=== PATIENT | female | born 1990 | race Caucasian/White ===

== ENCOUNTER 2017-11-25 11:09 | Emergency (ER) | payer OTHER ==
[2017-11-25 12:20] LABS: KETONE, URINE AUTO RFX NEGATIVE (NEGATIVE); LEUKOCYTE ESTERASE UR AUTO RFX NEGATIVE (NEGATIVE); NITRITE, URINE AUTO RFX NEGATIVE (NEGATIVE); RBC, URINE AUTO RFX 30 /HPF (0-3); SPECIFIC GRAVITY UR AUTO RFX 1.014 (1.002-1.035); SQUAM EPITHELIAL CELL UR AURFX 0 /HPF (0-6); WBC, URINE AUTO RFX 1 /HPF (0-3)
[2017-11-25] MEDS: ACETAMINOPHEN 325 MG TAB PO (14:27)
[2017-11-25 14:49] LABS: BASO # 0.1 10^3/uL (0.0-0.2); BASO % 0.6 % (0.0-1.0); EOS # 0.1 10^3/uL (0.0-0.50); EOS % 1.4 % (0.0-3.0); HEMATOCRIT 37.3 % (36.0-47.0); HEMOGLOBIN 12.4 g/dl (12.0-15.5); IMMATURE GRANULOCYTE % 0.2 % (0-3.0); LYMPH # 2.2 10^3/uL (1.5-6.5); LYMPH % 25.1 % (24.0-44.0); MEAN CORPUSCULAR HEMOGLOBIN 29.5 pg (27.0-33.0); MEAN CORPUSCULAR HGB CONC 33.2 g/dl (32.0-36.5); MEAN CORPUSCULAR VOLUME 88.8 fl (80.0-96.0); MONO # 0.6 10^3/uL (0.0-0.8); NEUTROPHILS # 5.7 10^3/uL (1.8-7.7); NEUTROPHILS % 65.7 % (36.0-66.0); PLATELET COUNT, AUTOMATED 297 10^3/uL (150-450); WHITE BLOOD COUNT 8.7 10^3/uL (4.0-10.0)
[2017-11-25 15:20] LABS: ANION GAP 8 MEQ/L (8-16); BLOOD UREA NITROGEN 5 MG/DL (7-18); CALCIUM LEVEL 8.8 MG/DL (8.5-10.1); CARBON DIOXIDE LEVEL 25 MEQ/L (21-32); CHLORIDE LEVEL 106 MEQ/L (98-107); CREATININE FOR GFR 0.48 MG/DL (0.55-1.30); GLOMERULAR FILTRATION RATE > 60.0 (>60); GLUCOSE, FASTING 83 MG/DL (70-100); HCG, SERUM QUANTITATIVE 3 MIU/ML; POTASSIUM SERUM 4.1 MEQ/L (3.5-5.1); SODIUM LEVEL 139 MEQ/L (136-145)
== END 2017-11-25 16:25 | disposition home or self-care (01) ==
LOC: M ED 11:09
DX: O03.9 Complete or unspecified spontaneous abortion without complication (principal); F17.210 Nicotine dependence, cigarettes, uncomplicated
CPT/HCPCS: 76856

== ENCOUNTER 2018-03-28 09:36 | Emergency (ER) | payer OTHER ==
[2018-03-28] MEDS: ONDANSETRON 4 MG ORAL DISINTEGRATING TAB (Q0162 PER 1MG) PO (11:05)
== END 2018-03-28 11:35 | disposition home or self-care (01) ==
LOC: M ED 09:36
DX: R11.2 Nausea with vomiting, unspecified (principal); R19.7 Diarrhea, unspecified; F17.210 Nicotine dependence, cigarettes, uncomplicated
CPT/HCPCS: Q0162

== ENCOUNTER 2018-09-11 15:41 | Emergency (ER) | payer OTHER ==
[~2018-09-11] VITALS: Ht 167.6 cm; Wt 68.2 kg
[~2018-09-11 15:41] MED LIST: BENT10CA PO; REGL10TA6 PO; ZOFR4TAB14 PO
[2018-09-11] MEDS ORDERED: PRENTAB55 PO (15:45)
[2018-09-11 16:15] LABS: BASO % 0.3 % (0.0-1.0); EOS # 0.3 10^3/uL (0.0-0.50); EOS % 2.5 % (0.0-3.0); HEMATOCRIT 33.6 % (36.0-47.0); HEMOGLOBIN 11.2 g/dl (12.0-15.5); LYMPH # 2.6 10^3/uL (1.5-6.5); LYMPH % 25.2 % (24.0-44.0); MEAN CORPUSCULAR HEMOGLOBIN 29.6 pg (27.0-33.0); MEAN CORPUSCULAR HGB CONC 33.3 g/dl (32.0-36.5); MEAN CORPUSCULAR VOLUME 88.7 fl (80.0-96.0); MONO # 0.9 10^3/uL (0.0-0.8); MONO % 8.2 % (0.0-5.0); NEUTROPHILS # 6.6 10^3/uL (1.8-7.7); NEUTROPHILS % 63.5 % (36.0-66.0); RED BLOOD COUNT 3.79 10^6/uL (4.00-5.40); WHITE BLOOD COUNT 10.5 10^3/uL (4.0-10.0)
[2018-09-11] MEDS ORDERED: NS 500 ML IV ONE (16:15)
--- NOTE | 2018-09-11 17:13 | REP ---
Obstetric sonography: Multiple gestation. First trimester study. History: Vaginal spotting. Findings: A diamniotic dichorionic twin gestation is seen. There is concordant growth. No subchorionic hemorrhage is seen. There is a 2.2 cm cyst in the maternal left ovary consistent with corpus luteum. A trace of cul-de-sac fluid is seen. [place]-rump length of fetus A is 6 mm corresponding with a 6 week 3 day gestational age estimate. heart rate is recorded at 122 beats per minute. The crown-rump length of fetus B is 7 mm corresponding with 6 weeks 4 day estimate. Its heart rate is recorded at 124 beats per minute. Impression: Viable diamniotic dichorionic twin gestation at 6 weeks 4 days from crown-rump length. PADMINI by sonography May 03, 2019. No complication is identified. Electronically Signed by Joseph Calzada MD 09/11/2018 08:04 P
[2018-09-11 17:49] LABS: BLOOD UREA NITROGEN 9 MG/DL (7-18); CARBON DIOXIDE LEVEL 25 MEQ/L (21-32); CHLORIDE LEVEL 104 MEQ/L (98-107); CREATININE FOR GFR 0.47 MG/DL (0.55-1.30); GLOMERULAR FILTRATION RATE > 60.0 (>60); GLUCOSE, FASTING 79 MG/DL (70-100); HCG, SERUM QUANTITATIVE 74236 MIU/ML; POTASSIUM SERUM 3.7 MEQ/L (3.5-5.1); SODIUM LEVEL 138 MEQ/L (136-145)
[2018-09-11 19:20] VITALS: BP 106/68
== END 2018-09-11 19:21 | disposition home or self-care (01) ==
LOC: M ED 15:41
DX: O20.9 Hemorrhage in early pregnancy, unspecified (principal); O30.041 Twin pregnancy, dichorionic/diamniotic, first trimester; O99.331 Smoking (tobacco) complicating pregnancy, first trimester; F17.210 Nicotine dependence, cigarettes, uncomplicated; Z3A.01 Less than 8 weeks gestation of pregnancy

== ENCOUNTER → 2018-09-30 | Outpatient (CLI) | payer OTHER ==
[~2018-09-30] MED LIST changes: +PRENTAB55 PO
--- NOTE | 2018-09-30 11:20 | REP ---
Emergency first trimester obstetric sonography: Multiple gestation. History: 9 weeks gestation with twins. Absence of cardiac activity. Findings: Scanning through the gravid uterus and urine filled bladder confirms the presence of a diamniotic dichorionic twin gestation. No subchorionic hemorrhage is appreciated. No extrauterine abnormalities observed. Unfortunately, no activity or cardiac activity could be documented in twin A. The crown-rump length of the embryonic pole for twin A is 23.6 mm. This corresponds with a gestational age estimate of 9 weeks 1 day by crown-rump length. Twin B is living with heart rate recorded at 183 beats per minute. The embryonic pole of twin B is 24.8 mm which corresponds with a 9 week 2 day gestational age estimate. Impression: Intrauterine demise twin A. Viable twin B at 9 weeks 1 day based on prior sonography. PADMINI May 04, 2019. heart rate for twin B is slightly elevated and recorded at 183 beats per minute. No subchorionic hemorrhage is visible. Electronically Signed by Joseph Calzada MD 09/30/2018 06:51 P
== END ==
LOC: M RAD 10:14
PROVIDERS: ATTEND Obstetrics & Gynecology
DX: O02.1 Missed abortion (principal)

== ENCOUNTER 2018-10-08 16:16 | Emergency (ER) | payer OTHER ==
[~2018-10-08] VITALS: Ht 167.6 cm; Wt 66.8 kg
[2018-10-08 16:17] VITALS: BP 122/73
[2018-10-08 17:21] LABS: ALBUMIN 3.6 GM/DL (3.2-5.2); ALT/SGPT 16 U/L (12-78); BILIRUBIN,TOTAL 0.1 MG/DL (0.2-1.0); BLOOD UREA NITROGEN 9 MG/DL (7-18); CALCIUM LEVEL 8.7 MG/DL (8.5-10.1); CARBON DIOXIDE LEVEL 25 MEQ/L (21-32); CHLORIDE LEVEL 103 MEQ/L (98-107); CREATININE FOR GFR 0.37 MG/DL (0.55-1.30); GLOMERULAR FILTRATION RATE > 60.0 (>60); GLUCOSE, FASTING 96 MG/DL (70-100); POTASSIUM SERUM 3.7 MEQ/L (3.5-5.1); SODIUM LEVEL 137 MEQ/L (136-145); TOTAL PROTEIN 6.6 GM/DL (6.4-8.2)
[2018-10-08 17:26] LABS: BASO % 0.5 % (0.0-1.0); EOS # 0.3 10^3/uL (0.0-0.50); EOS % 3.8 % (0.0-3.0); HEMATOCRIT 32.2 % (36.0-47.0); LYMPH # 1.9 10^3/uL (1.5-6.5); LYMPH % 25.5 % (24.0-44.0); MEAN CORPUSCULAR HEMOGLOBIN 30.3 pg (27.0-33.0); MEAN CORPUSCULAR HGB CONC 34.2 g/dl (32.0-36.5); MEAN CORPUSCULAR VOLUME 88.7 fl (80.0-96.0); MONO # 0.8 10^3/uL (0.0-0.8); MONO % 11.2 % (0.0-5.0); NEUTROPHILS # 4.3 10^3/uL (1.8-7.7); NEUTROPHILS % 58.7 % (36.0-66.0); PLATELET COUNT, AUTOMATED 247 10^3/uL (150-450); RED BLOOD COUNT 3.63 10^6/uL (4.00-5.40); WHITE BLOOD COUNT 7.3 10^3/uL (4.0-10.0)
[2018-10-08 18:09] LABS: HIVEXPOSED0 NEGATIVE (NEGATIVE)
[2018-10-09 11:27] LABS: HEPATITIS B SURFACE ANTIBODY POSITIVE (POSITIVE)
[2018-10-09 11:38] LABS: HEPATITIS B SURFACE ANTIGEN NEGATIVE (NEGATIVE)
== END 2018-10-08 17:18 | disposition home or self-care (01) ==
LOC: M ED 16:16
DX: Z77.21 Contact with and (suspected) exposure to potentially hazardous body fluids (principal); Y99.0 Civilian activity done for income or pay

== ENCOUNTER 2019-04-21 07:38 | Outpatient (CLI) | payer OTHER ==
[~2019-04-21] VITALS: Ht 167.6 cm; Wt 77.0 kg
--- NOTE | 2019-04-21 08:59 | IPNPDOC ---
Text Note Date of Service The patient was seen on 04/21/19. NOTE 28 yo at 38+0 weeks gestation presented to L&D with the complaint of some discharge/leaking this AM in the shower that has since stopped. She had some painful contractions earlier, but this has since resolved as well. She denies any vaginal bleeding. She endorses excellent movement. She is scheduled for a RLTCS on 30Apr2019. Chaperoned by L&D RN Vitals - VSS, afebrile, normotensive, non tachycardic General - AAOX3, sitting up in bed, NAD Abdomen - Gravid uterus, no fundal tenderness Pelvic - Normal external genitalia. Speculum placed into the vagina. No pooling of fluid. Scant white discharge. Negative leak with valsalva. Cervix visually closed. Swabs obtained for nitrazine and ferning. Speculum removed. Cervix cl/thick/high to digital exam. microscopy Nitrazine - Negative Ferning - Negative FHR tracing - Cat I with moderate variability, +accels, no decels. Intermittent ctx on monitor, but not uncomfortable. Bedside TAUS (anatomy not assessed): SIUP in cephalic presentation. +FCA. MICHAEL 12.5cm. +gross movement. No evidence of ruptured membranes or labor. Reassuring status. Patient discharged home with return precautions. All questions answered. DO SLOAN Baca CHRISTOPHER J. DO Apr 21, 2019 08:59
[2019-04-23] MEDS ORDERED: FERR325T3 PO (09:44)
[2019-04-23] MEDS ORDERED: OYST1TAB PO (09:44)
== END 2019-04-21 09:00 | disposition home or self-care (01) ==
LOC: M LDO 07:38
PROVIDERS: ATTEND Obstetrics & Gynecology
DX: O26.893 Other specified pregnancy related conditions, third trimester (principal); N89.8 Other specified noninflammatory disorders of vagina; Z3A.38 38 weeks gestation of pregnancy
CPT/HCPCS: 59025; 76815; G0378; G0463

== ENCOUNTER 2019-04-30 05:09 | Inpatient (IN) | payer OTHER ==
--- NOTE | 2019-04-22 04:49 | HPE ---
DATE OF PLANNED ADMISSION: 04/30/2019 This lady is a 28-year-old, 5, para 1, T1, P1, A2, L2, G5, whose last menstrual period (LMP) was 07/29/2018, estimated date of confinement (EDC) by ultrasound at 9 weeks 2 days is 05/05/2019, booked for repeat section and bilateral tubal ligation by Filshie clip on 04/30/2019. PAST HISTORY: February 2011 at 36 weeks, had a primary section for premature rupture of membranes (PPROM), a female, 6 pounds 13 ounces. Had a repeat section January of 2013 at 39 weeks for a male, 8 pounds 11 ounces. In 2017, had a 6 weeks spontaneous ; and in 2011, had a 6 weeks spontaneous . ALLERGIES: She has no known allergies. Her risk factors are that she is a smoker. She had a twin and early on in the gestation, she had a demise of Twin A. Her lab values show that she is O positive, HIV negative, hepatitis negative, RPR negative, rubella immune. Varicella immune. Pap is normal. Urine is negative. Gonorrhea and chlamydia are negative. 1-hour glucose was 134. GBS is positive. On examination today, in no acute distress and weighs 170 pounds. The body mass index (BMI) is 22.76. Blood pressure is 115/81, respirations are 18, pulse is 78. Symphysis fundus height is at 36 weeks of gestation. heart is present and vertex presentation. Scar is intact. The rest of the examination is unremarkable. She is normocephalic, atraumatic. Neck full range of motions. Pupils equal and reactive to light. Distal pulses are symmetric. No evidence of deep venous thrombosis (DVT), pulmonary embolism (PE), or superficial phlebitis. Chest is clear bilaterally to bases. No wheezes or rhonchi. No costovertebral angle (CVA) tenderness. Abdomen soft. Uterus appropriate symphysis fundus height. Four quadrant bowel sounds are noted. No rashes, lesions, or pruritus. No arthralgia, myalgia. No complaint of cough, wheezes, shortness of breath, or dyspnea on exertion. No joint pain. She has no past gynecologic (UTILITY TELLER) history. Surgical history is two sections. She has a good support system, to a soldier, and there is no domestic violence. We had a discussion regarding the section and satisfied parity, having to do a bilateral tubal ligation by Filshie clip. Risks of section include hemorrhage, infection, perforation of organs, , emergency hysterectomy, emergency blood transfusion for uncontrolled bleeding. Risk factors remote are laceration of the fetus or the baby ending up in the intensive care unit (NICU). In regard to her tubal ligation by Filshie clip, less than a 1% failure rate over 5 years. Risk of post tubal ligation syndrome or abnormal uterine bleeding could be entertained. We had a 40-minute discussion with all questions answered. The patient signed the consent form. We also discussed circumcision, in which there is medical and nonmedical indications, the penile block, and aftercare. Expressed understanding of penile block, aftercare, and bleeding. We will have her sign the consent form, and we discussed doing the circumcision 24 hours after the baby is delivered. All questions again were answered. We reviewed the situation of the smoking, and the patient is awaiting anesthesia.
[2019-04-30] VITALS (7 sets, daily range): BP systolic 91–129; BP diastolic 47–74
[~2019-04-30] VITALS: Ht 167.6 cm; Wt 77.3 kg
[~2019-04-30 05:09] MED LIST changes: +FERR325T3 PO; +OYST1TAB PO
[2019-04-30 05:52] LABS: HEMATOCRIT 31.4 % (36.0-47.0); HEMOGLOBIN 10.5 g/dl (12.0-15.5); MEAN CORPUSCULAR HEMOGLOBIN 30.8 pg (27.0-33.0); MEAN CORPUSCULAR HGB CONC 33.4 g/dl (32.0-36.5); MEAN CORPUSCULAR VOLUME 92.1 fl (80.0-96.0); PLATELET COUNT, AUTOMATED 286 10^3/uL (150-450); RED BLOOD COUNT 3.41 10^6/uL (4.00-5.40); WHITE BLOOD COUNT 14.4 10^3/uL (4.0-10.0)
[2019-04-30] MEDS ORDERED: LR 1,000 ML IV ONE (06:00)
[2019-04-30] MEDS ORDERED: BICITRA 30ML SOLN UDC PO ONE (06:30)
[2019-04-30] MEDS ORDERED: BUPIVACAINE HCL 0.25% 10 ML VIAL INFIL ONE (06:30)
[2019-04-30] MEDS ORDERED: AZITHROMYCIN INJ 500 MG, VIAL MATE ADAPTER 1 EACH in D5W 250 ML IV ONE (06:30)
[2019-04-30] MEDS ORDERED: ACETAMINOPHEN 650 MG SUPP PR ONE (06:30)
[2019-04-30] MEDS ORDERED: diphenhydrAMINE INJ 50MG/ML VIAL (J1200) IV PRN (07:52)
[2019-04-30] MEDS ORDERED: NALBUPHINE HCL 10 MG/ML AMP (J2300) IV PRN ×2 (07:52→09:30)
[2019-04-30] MEDS ORDERED: METOCLOPRAMIDE INJ 10MG/2ML VIAL (J2765) IV PRN (07:52)
[2019-04-30] MEDS ORDERED: ONDANSETRON 4MG/2ML VIAL (J2405) IV PRN ×2 (07:52→09:30)
[2019-04-30] MEDS ORDERED: NALOXONE INJ 0.4 MG/1 ML VIAL (J2310) IV PRN ×2 (07:52)
[2019-04-30] MEDS ORDERED: KETOROLAC 60 MG/2 ML VIAL (J1885) As Ordered ONE (08:09)
[2019-04-30] MEDS ORDERED: OXYTOCIN INJ 10 UNITS/ML VIAL (J2590) As Ordered ONE (08:09)
[2019-04-30] MEDS ORDERED: MORPHINE PRES-FREE INJ 10 MG/10 ML VIAL (J2274) As Ordered ONE (08:09)
[2019-04-30] MEDS ORDERED: ONDANSETRON 4MG/2ML VIAL (J2405) As Ordered ONE (08:09)
[2019-04-30] MEDS ORDERED: ePHEDrine SULFATE 25 MG/5 ML(5MG/ML) SYRINGE As Ordered ONE (08:09)
[2019-04-30] MEDS ORDERED: PHENYLephrine HCL 500 MCG/5 ML (100MCG/ML) SYRINGE (J2370) As Ordered ONE ×2 (08:09→08:10)
[2019-04-30] MEDS ORDERED: dexameTHASONE 4 MG/ML 1ML VIAL (J1100) As Ordered ONE ×2 (08:09→08:53)
[2019-04-30] MEDS ORDERED: fentaNYL 100 MCG/2 ML INJECTION (J3010) As Ordered ONE ×3 (08:47→09:37)
[2019-04-30 08:53] LABS: CORD GAS ABE A -5.7; CORD GAS HCO3 A 21.5 MEQ/L; CORD GAS O2 SAT A 84.1 %; CORD GAS PCO2 A 48.1 mmHg; CORD GAS PH A 7.269 UNITS; CORD GAS PO2 A 43.5 mmHg; CORD GAS SBC A 19.6 MEQ/L
[2019-04-30 08:55] LABS: CORD GAS ABE V -3.6; CORD GAS HCO3 V 22.5 MEQ/L; CORD GAS O2 SAT V 70.6 %; CORD GAS PCO2 V 43.9 mmHg; CORD GAS PH V 7.327 UNITS; CORD GAS PO2 V 30.4 mmHg; CORD GAS SBC V 20.8 MEQ/L; CORD GAS TCO2 V 23.8 MEQ/L
[2019-04-30] MEDS: PRENATAL VITAMINS CHEWABLE TABLET PO SCH (09:00)
[2019-04-30] MEDS ORDERED: LR 1,000 ML IV SCH (09:18)
[2019-04-30] MEDS ORDERED: OXYTOCIN DRIP 30 UNITS in APPROPRIATE DILUENT 1 EA IV SCH (09:18)
[2019-04-30] MEDS ORDERED: ANUSOL HC CREAM 30GM TOP PRN (09:30)
[2019-04-30] MEDS ORDERED: MEASLES,MUMPS,RUBELLA VACCINE INJ (MMR-II) (90707) SC SCH (09:30)
[2019-04-30] MEDS ORDERED: METHYLERGONOVINE MALEATE 0.2 MG TAB PO PRN (09:30)
[2019-04-30] MEDS ORDERED: DOCUSATE SODIUM 100 MG CAP PO PRN (09:30)
[2019-04-30] MEDS ORDERED: RHOGAM 300 MCG (1500 IU) INJ (J2790) IM SCH (09:30)
[2019-04-30] MEDS ORDERED: ACETAMINOPHEN 500 MG TAB PO PRN (09:30)
[2019-04-30] MEDS ORDERED: MOM 30ML SUSPENSION UDC PO PRN (09:30)
[2019-04-30] MEDS ORDERED: PERCOCET 5MG/325MG TAB PO PRN (09:30)
[2019-04-30] MEDS ORDERED: OXYTOCIN 30 UNITS IN 0.9% NaCl 500ML IV BAG (J2590) As Ordered ONE (09:37)
[2019-04-30] MEDS: fentaNYL 100 MCG/2 ML INJECTION (J3010) IV PRN ×4 (09:38→10:04)
[2019-04-30] MEDS ORDERED: PERCOCET 5MG/325MG TAB As Ordered ONE (10:21)
[2019-04-30] MEDS: PERCOCET 5MG/325MG TAB PO PRN (10:23)
[2019-04-30] MEDS: LR 1,000 ML IV SCH ×3 (14:04→23:00)
[2019-04-30] MEDS: KETOROLAC 30 MG/ML VIAL (J1885) IV SCH ×2 (15:38→20:59)
--- NOTE | 2019-04-30 18:45 | IPN ---
DATE: 04/30/2019 This lady and her requested circumcision of their male . After discussing the risks and benefits of circumcision, the medical and nonmedical indications, the penile block and aftercare, expressed understanding of the penile block, aftercare and bleeding, signed the consent form. All questions were answered. A 20-minute discussion. We await the clearance by the meat seafood associate.
[2019-05-01 02:00] VITALS: BP 100/56
[2019-05-01] MEDS: KETOROLAC 30 MG/ML VIAL (J1885) IV SCH (03:00)
[2019-05-01] MEDS: LR 1,000 ML IV SCH ×2 (04:04→15:00)
[2019-05-01 06:00] VITALS: BP 104/57
[2019-05-01 07:09] LABS: HEMATOCRIT 25.5 % (36.0-47.0); MEAN CORPUSCULAR HEMOGLOBIN 30.4 pg (27.0-33.0); MEAN CORPUSCULAR HGB CONC 32.9 g/dl (32.0-36.5); MEAN CORPUSCULAR VOLUME 92.4 fl (80.0-96.0); PLATELET COUNT, AUTOMATED 277 10^3/uL (150-450); RED BLOOD COUNT 2.76 10^6/uL (4.00-5.40); WHITE BLOOD COUNT 16.5 10^3/uL (4.0-10.0)
[2019-05-01 07:14] LABS: HEMOGLOBIN 8.4 g/dl (12.0-15.5)
[2019-05-01] MEDS: PRENATAL VITAMINS CHEWABLE TABLET PO SCH (07:51)
[2019-05-01 10:00] VITALS: BP 101/61
[2019-05-01] MEDS: IBUPROFEN 800 MG TAB PO PRN ×2 (10:19→17:51)
--- NOTE | 2019-05-01 11:04 | RO ---
DATE OF PROCEDURE: 04/30/2019 POSTOPERATIVE DIAGNOSIS: Repeat section, satisfied parity, tubal ligation. POSTOPERATIVE DIAGNOSIS: Repeat section declined tubal ligation. Window in the uterine incision. OPERATION PROPOSED: Repeat section and tubal ligation by Filshie clip. OPERATION PERFORMED: Repeat section. ANESTHESIA: Spinal plus local anesthetic for intraperitoneal procedures. ESTIMATED BLOOD LOSS: 300 mL SURGEON: Dr. Jensen SENIOR PRINCIPAL ARCHITECT: Dr. Jackson Under adequate anesthesia, prepped and draped in the supine position, Jones catheter in the bladder draining clear urine. Acetaminophen suppository 1300 mg per rectum and appropriate antibiotics preoperatively and sequentials time-out was performed. A low transverse incision was made through the previous two passing through abdominal layers securing hemostasis. Opening into the peritoneal cavity we visualized a large uterine window in the lower segment. We basically just peeled off a bit of the peritoneum and low transverse digital incision with fingers, clear Liqua. Delivered a live male infant weighing 7 pounds 11 ounces 3490 grams of 9 and 9 at 1 and 5 minutes respectfully. Cord was around the neck times 1. There was terminal meconium at delivery. Arterial pH 7.26, base excess -5.7, venous pH 7.32, base excess -3.6. The placenta was manually removed was quite calcified sweeping out the lower segment. No evidence of retained products of conception. The uterus was skylar well under Pitocin. The lower segment oversewn usual fashion in two layers and then reperitonealization was performed. With instrument and pad count correct both ovaries and tubes appeared to be normal. We asked the patient if she wished to have her tubal ligation. She declined and therefore the tubal was not performed. The abdomen then closed running stitch for the peritoneum, same for the fascia interrupted for subcu Dexon to the skin local anesthetic Marcaine 0.25% 10 mL and Telfa and the patient was sent to recovery in good condition.
--- NOTE | 2019-05-01 13:31 | IPN ---
DATE: 05/01/2019 This lady is a 26-year-old 5 now para 2 was admitted for repeat section times three. She had a repeat section. There was a window noticed in the uterus and I delivered a live male 7 pounds 11 ounces 3490 grams of 9 and 9 at 1 and 5 minutes respectfully. Arterial pH 7.26, base excess -5.7, venous pH 7.32, base excess -3.6. On her first day we discussed phlebitis, cystitis, mastitis, metritis and cellulitis, diet, exercise pain management, perineal breast and wound care. She is not sure what she wants to do for control she did want to have a tubal ligation but changed her mind at the time of surgery. Her vital signs today her blood pressure is 104/57, respirations are 18, pulse 81, temperature is 99.5. She had an admitting hemoglobin of 10.5, hematocrit 31.4 and platelets 286. day #1 hemoglobin is pending the rest examination unremarkable. She is normocephalic, atraumatic. Neck: Full range of motion. Pupils equal and react to light. Distal pulses symmetric. No evidence of DVT, PE or superficial phlebitis. Chest is clear bilaterally base of wheezes or rhonchi. No CVA tenderness. Abdomen: Soft uterus two below. Lochia is moderate. Four quadrant bowel sounds are noted and incision is clean and dry. She is also voided and passing gas. There is no rashes, lesions or pruritus. No arthralgia, myalgia. No complaint joint pain. No complaint cough, wheeze, shortness of breath or dyspnea on exertion. No urgency, frequency. No nausea, vomiting, diarrhea or constipation. Plan of management is to circumcise her son later today. Plan for discharge tomorrow morning. Medications were dispensed today. Two week incision check and 6-week check.
[2019-05-01 14:00] VITALS: BP 111/70
[2019-05-01 18:00] VITALS: BP 116/74
[2019-05-01] MEDS: PERCOCET 5MG/325MG TAB PO PRN ×2 (18:12→22:04)
[2019-05-01 22:06] VITALS: BP 104/56
[2019-05-02 02:01] VITALS: BP 95/53
[2019-05-02] MEDS: PERCOCET 5MG/325MG TAB PO PRN ×3 (03:17→12:48)
--- NOTE | 2019-05-02 05:11 | OBDS ---
[facility] Obstetrical Discharge Sum. Obstetrical Discharge Summary Inspector Health Care Facilities/Provider: JACQUIE CARROLL DO Date: May 02, 2019 : 5 Term: 2 Pre-term: 1 Abortions: 2 Livin VDRL: Non-Reactive Rh: Positive Rubella: Immune Infant Sex: Male Weight: grams (3490) Anesthesia: Regional Anesthesia A/P, Post Course List any complications Admission diagnosis: History of Section desiring repeat. Discharge diagnosis: History of Section desiring repeat, Viable Male . Condition at Discharge: [Good] Discharge Instructions: [Home] Activity: [as desired] Diet: [regular] Medications: [as discussed with Dr. Jensen] Follow-up: [2 weeks for incision check, 6 weeks for visit] Hospital Summary: Luz is a 28yo [id number] status post uncomplicated repeat section, EBL 300cc. Pain well controlled, ambulating without difficulty, tolerating a regular diet, passing flatus. She is bonding well with baby. She met all criteria for discharge on postoperative day 2. VS: reviewed, normotensive, non-tachycardic, afebrile GEN: WNWD, NAD CV: RRR, no m/g/r RESP: CTAB, no w/r/ ABD: Soft, + BS in all 4 quadrants, NTND, Uterus @ U-2 INCISION: C/D/I EXT: No edema, negative sandi's sign JACQUIE CARROLL DO May 02, 2019 05:11
[2019-05-02 06:13] VITALS: BP 109/64
[2019-05-02] MEDS: IBUPROFEN 800 MG TAB PO PRN (07:23)
[2019-05-02] MEDS: PRENATAL VITAMINS CHEWABLE TABLET PO SCH (07:23)
[2019-05-02 10:00] VITALS: BP 110/67
== END 2019-05-02 13:00 | disposition home or self-care (01) | DRG 773 ==
LOC: M LDI 05:09 → M OBS 10:49
PROVIDERS: ADMIT Obstetrics & Gynecology; ATTEND Obstetrics & Gynecology
PROC: 10D00Z1 Extraction of Products of Conception, Low, Open Approach (ICD-10-PCS; principal; 2019-04-30 07:30)
DX: O34.211 Maternal care for low transverse scar from previous cesarean delivery (principal); O99.334 Smoking (tobacco) complicating childbirth; F17.210 Nicotine dependence, cigarettes, uncomplicated; O99.824 Streptococcus B carrier state complicating childbirth; O69.81X0 Labor and delivery complicated by cord around neck, without compression, not applicable or unspecified; Z37.0 Single live birth; Z3A.39 39 weeks gestation of pregnancy

== ENCOUNTER → 2020-03-30 | Outpatient (REF) | payer OTHER | LOC: M SFHCLUC 09:05 | PROVIDERS: ATTEND Nurse Practitioner Family | DX: J02.9 Acute pharyngitis, unspecified (principal) ==